=== PATIENT | female | born 1945 | race American Indian/Alaskan Native ===

== ENCOUNTER 2018-10-24 15:00 | Emergency (ER) | payer MEDICARE ==
[2018-10-24] MEDS ORDERED: Sodium Chloride 0.9% 10 ML Syringe FLUSH PRN (15:11)
[2018-10-24] MEDS ORDERED: Sodium Chloride 0.9% 500 ML IV ONE (15:42)
--- NOTE | 2018-10-24 15:45 | EDM.PDOC ---
ED HPI GENERAL MEDICAL PROBLEM - General Chief Complaint: Neuro Symptoms/Deficits Stated Complaint: DIZZYSPELLS Time Seen by Provider: 10/24/18 15:41 Source of Information: Reports: Patient History Limitations: Reports: No Limitations - History of Present Illness INITIAL COMMENTS - FREE TEXT/NARRATIVE: Patient complains of dizziness (spinning sensation) and feeling off balance since yesterday @11 pm, symptoms noted to be worse upon awakening at 6 am today. She took four Dramamine tablets today without improvement. Had mild similar symptoms 2 weeks ago that spontaneously resolved, she did not seek medical attention. Also had similar symptoms 4 years ago, diagnosed with TIA and underwent left carotid endarterectomy. 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 - Related Data Allergies Allergy/AdvReac Type Severity Reaction Status Date / Time hydrocodone Allergy Nausea and Verified 10/24/18 15:36 Vomiting naproxen Allergy Hives Verified 10/24/18 15:36 niacin AdvReac Itching Verified 10/24/18 15:36 Home Meds: Home Meds Butalb/Acetaminophen/Caffeine [Fioricet 50-325-40 mg Tablet] 1 tab PO Q6H PRN [History] Losartan [Cozaar] 100 mg PO DAILY 90 Days tablet 05/19/13 [Rx] Metoprolol Tartrate [Lopressor] 100 mg PO BID 05/19/13 [History] Potassium Chloride [Klor-Con M20] 20 meq PO BIDM #60 tab.er 05/19/13 [Rx] Simvastatin [Zocor] 40 mg PO DAILY 05/19/13 [History] Calcium Carbonate/Vitamin D3 [Caltrate 600+D 1500 MG-400 Units] 1 tab PO DAILY 04/13/14 [History] Ondansetron [Zofran] 4 mg PO Q8H PRN 04/13/14 [History] Vitamin A 8,000 unit PO DAILY 04/13/14 [History] rOPINIRole [Requip] 0.5 tab PO TID 04/13/14 [History] Albuterol Sulfate [Albuterol Sulfate HFA] 7 gm IH Q4H PRN 04/09/15 [History] Aspirin [Adult Low Dose Aspirin EC] 81 mg PO DAILY 04/09/15 [History] Doxycycline [Doxycycline Hyclate] 100 mg PO BID 10/24/18 [History] Past Medical History HEENT History: Reports: Cataract Cardiovascular History: Reports: High Cholesterol, Hypertension. Denies: CAD Respiratory History: Reports: COPD, Interstitial Lung Disease Musculoskeletal History: Reports: Osteoporosis Other Musculoskeletal History: Right hip severe osteoarthritis Neurological History: Reports: TIA - Past Surgical History HEENT Surgical History: Reports: Cataract Surgery, LASIK Cardiovascular Surgical History: Reports: Carotid Endarterectomy (Left) Musculoskeletal Surgical History: Reports: Arthroscopic Procedure Social & Family History - Tobacco Use Smoking Status *Q: Current Every Day Smoker Tobacco Use Within Last Twelve Months: Cigarettes - Alcohol Use Alcohol Use History: No ED ROS GENERAL - Review of Systems Review Of Systems: ROS reveals no pertinent complaints other than HPI. ED EXAM, DIZZINESS - Physical Exam Exam: See Below Exam Limited By: No Limitations General Appearance: Alert, WD/WN, No Apparent Distress Eye Exam: Bilateral Eye: EOMI (No nystagmus), PERRL Ears: Normal External Exam, Normal Canal, Normal TMs Nose: Normal Inspection Throat/Mouth: No Airway Compromise Head Exam: Atraumatic, Normocephalic Neck: Normal Inspection, Supple, Full Range of Motion Respiratory/Chest: No Respiratory Distress, Lungs Clear, Normal Breath Sounds Cardiovascular: Regular Rate, Rhythm, No Murmur GI/Abdominal: No Distention Neurological: Alert, Normal Mood/Affect, CN II-XII Intact, Normal Plantar Flexion, No Motor/Sensory Deficits, Oriented x 3, Other (NIHSS score = 0) Extremities: Normal Inspection Psychiatric: Normal Affect, Normal Mood Skin Exam: Warm, Dry, Intact EKG INTERPRETATION EKG Date: 10/24/18 Time: 15:21 Rhythm: Other (sinus bradycardia) Rate (Beats/Min): 53 QRS: Other (LVH with secondary repolarization abnormality) Course - Vital Signs Last Recorded V/S: Last Vital Signs Temp 36.1 C 10/24/18 15:00 Pulse 54 L 10/24/18 15:00 Resp 20 10/24/18 15:00 BP 161/79 H 10/24/18 15:00 Pulse Ox 98 10/24/18 15:00 - Orders/Labs/Meds Orders: Active Orders 24 hr Category Date Time Status EKG Documentation Completion [RC] ASDIRECTED Care 10/24/18 15:10 Active CXR [Chest 2V] [CR] Stat Exams 10/24/18 15:14 Taken Head wo Cont [CT] Stat Exams 10/24/18 15:14 Taken UA W/MICROSCOPIC [URIN] Stat Lab 10/24/18 15:11 Ordered Sodium Chloride 0.9% [Normal Saline] 500 ml Med 10/24/18 15:42 Active IV .BOLUS Sodium Chloride 0.9% [Saline Flush] Med 10/24/18 15:11 Active 10 ml FLUSH ASDIRECTED PRN Saline Lock Insert [OM.PC] Routine Oth 10/24/18 15:11 Ordered EKG 12 Lead [EK] Stat Ther 10/24/18 15:10 Ordered Medication Orders Sodium Chloride (Normal Saline) 500 mls @ 500 mls/hr IV .BOLUS ONE Stop: 10/24/18 16:41 Last Admin: 10/24/18 16:05 Dose: 500 mls/hr Sodium Chloride (Saline Flush) 10 ml FLUSH ASDIRECTED PRN PRN Reason: Keep Vein Open Last Admin: 10/24/18 15:45 Dose: 10 ml Labs: Laboratory Tests 10/24/18 10/24/18 10/24/18 Range/Units 15:15 15:15 15:15 WBC 7.7 (4.5-12.0) X10-3/uL RBC 4.78 (3.23-5.20) x10(6)uL Hgb 13.4 (11.5-15.5) g/dL Hct 40.0 (30.0-51.3) % MCV 83.7 (80-96) fL MCH 28.1 (27.7-33.6) pg MCHC 33.6 (32.2-35.4) g/dL RDW 13.0 (11.5-15.5) % Plt Count 261 (125-369) X10(3)uL MPV 9.3 (7.4-10.4) fL Neut % (Auto) 70.5 (46-82) % Lymph % (Auto) 22.0 (13-37) % [place] % (Auto) 5.0 (4-12) % Eos % (Auto) 2 (1.0-5.0) % Baso % (Auto) 1 (0-2) % Neut # (Auto) 5.4 (1.6-8.3) # Lymph # (Auto) 1.7 (0.6-5.0) # [place] # (Auto) 0.4 (0.0-1.3) # Eos # (Auto) 0.1 (0.0-0.8) # Baso # (Auto) 0.1 (0.0-0.2) # PT (8.7-11.1) INR (0.89-1.13) APTT (24.4-33.2) SECONDS Sodium 137 (135-145) mmol/L Potassium 3.3 L (3.5-5.3) mmol/L Chloride 102 (100-110) mmol/L Carbon Dioxide 29 (21-32) mmol/L BUN 12 (7-18) mg/dL Creatinine 0.7 (0.55-1.02) mg/dL Est Cr Clr Drug Dosing TNP Estimated GFR (MDRD) > 60 (>60) BUN/Creatinine Ratio 17.1 (9-20) Glucose 91 (80-116) mg/dL Calcium 9.2 (8.6-10.2) mg/dL Magnesium (1.8-2.5) mg/dL Total Bilirubin 0.4 (0.1-1.3) mg/dL AST 15 (5-25) IU/L ALT < 6 L (12-36) U/L Alkaline Phosphatase 73 (56-112) IU/L Troponin I < 0.017 L (<0.017-0.056) ng/mL Total Protein 8.4 H (6.0-8.0) g/dL Albumin 3.1 L (3.2-4.6) g/dL Globulin 5.3 g/dL Albumin/Globulin Ratio 0.6 10/24/18 10/24/18 Range/Units 15:15 15:15 WBC (4.5-12.0) X10-3/uL RBC (3.23-5.20) x10(6)uL Hgb (11.5-15.5) g/dL Hct (30.0-51.3) % MCV (80-96) fL MCH (27.7-33.6) pg MCHC (32.2-35.4) g/dL RDW (11.5-15.5) % Plt Count (125-369) X10(3)uL MPV (7.4-10.4) fL Neut % (Auto) (46-82) % Lymph % (Auto) (13-37) % [place] % (Auto) (4-12) % Eos % (Auto) (1.0-5.0) % Baso % (Auto) (0-2) % Neut # (Auto) (1.6-8.3) # Lymph # (Auto) (0.6-5.0) # [place] # (Auto) (0.0-1.3) # Eos # (Auto) (0.0-0.8) # Baso # (Auto) (0.0-0.2) # PT 9.8 (8.7-11.1) INR 1.01 (0.89-1.13) APTT 28.4 (24.4-33.2) SECONDS Sodium (135-145) mmol/L Potassium (3.5-5.3) mmol/L Chloride (100-110) mmol/L Carbon Dioxide (21-32) mmol/L BUN (7-18) mg/dL Creatinine (0.55-1.02) mg/dL Est Cr Clr Drug Dosing Estimated GFR (MDRD) (>60) BUN/Creatinine Ratio (9-20) Glucose (80-116) mg/dL Calcium (8.6-10.2) mg/dL Magnesium 1.9 (1.8-2.5) mg/dL Total Bilirubin (0.1-1.3) mg/dL AST (5-25) IU/L ALT (12-36) U/L Alkaline Phosphatase (56-112) IU/L Troponin I (<0.017-0.056) ng/mL Total Protein (6.0-8.0) g/dL Albumin (3.2-4.6) g/dL Globulin g/dL Albumin/Globulin Ratio Meds: Medications Generic Name Dose Route Start Last Admin Trade Name Freq PRN Reason Stop Dose Admin Sodium Chloride 500 mls @ 500 mls/hr 10/24/18 15:42 10/24/18 16:05 Normal Saline IV 10/24/18 16:41 500 mls/hr .BOLUS ONE Administration Sodium Chloride 10 ml 10/24/18 15:11 10/24/18 15:45 Saline Flush FLUSH 10 ml ASDIRECTED PRN Administration Keep Vein Open Discontinued Medications Generic Name Dose Route Start Last Admin Trade Name Freq PRN Reason Stop Dose Admin Aspirin 243 mg 10/24/18 16:23 10/24/18 16:24 Aspirin PO 10/24/18 16:24 243 mg ONETIME ONE Administration - Radiology Interpretation Free Text/Narrative:: Head CT: No acute findings. CXR: 10 mm nodular density right upper lung zone; interstitial opacities, likely related to fibrosis - Re-Assessments/Exams Free Text/Narrative Re-Assessment/Exam: 10/24/18 16:[address] Espinosa (neurology), recommends transfer to [facility] ED for MRI brain. Dr. Lindquist ([facility] ED) accepting. Departure - Departure Time of Disposition: 16:36 Disposition: DC/Tfer to Acute Hospital 02 Condition: Fair Clinical Impression: Dizziness, Suspected cerebrovascular accident (CVA) - Discharge Information *PRESCRIPTION DRUG MONITORING PROGRAM REVIEWED*: No *COPY OF PRESCRIPTION DRUG MONITORING REPORT IN PATIENT KYRA: Not Applicable Referrals: Yassine Mayen MD [Primary Care Provider] - Forms: ED Department Discharge - My Orders Last 24 Hours: My Active Orders 10/24/18 15:10 EKG Documentation Completion [RC] ASDIRECTED EKG 12 Lead [EK] Stat 10/24/18 15:11 UA W/MICROSCOPIC [URIN] Stat Sodium Chloride 0.9% [Saline Flush] 10 ml FLUSH ASDIRECTED PRN Saline Lock Insert [OM.PC] Routine 10/24/18 15:14 CXR [Chest 2V] [CR] Stat Head wo Cont [CT] Stat 10/24/18 15:42 Sodium Chloride 0.9% [Normal Saline] 500 ml IV .BOLUS - Assessment/Plan Last 24 Hours: My Active Orders 10/24/18 15:10 EKG Documentation Completion [RC] ASDIRECTED EKG 12 Lead [EK] Stat 10/24/18 15:11 UA W/MICROSCOPIC [URIN] Stat Sodium Chloride 0.9% [Saline Flush] 10 ml FLUSH ASDIRECTED PRN Saline Lock Insert [OM.PC] Routine 10/24/18 15:14 CXR [Chest 2V] [CR] Stat Head wo Cont [CT] Stat 10/24/18 15:42 Sodium Chloride 0.9% [Normal Saline] 500 ml IV .BOLUS
[2018-10-24] MEDS ORDERED: Aspirin 81 MG Tab.Chew PO ONE (16:23)
[2018-10-24 17:07] VITALS: BP 150/69
== END 2018-10-24 16:54 ==
LOC: FB.ED 15:00
DX: R42 Dizziness and giddiness (principal); I10 Essential (primary) hypertension; F17.210 Nicotine dependence, cigarettes, uncomplicated; Z88.8 Allergy status to other drugs, medicaments and biological substances; Z88.5 Allergy status to narcotic agent; Z79.899 Other long term (current) drug therapy
CPT/HCPCS: 36415; 70450; 71046; 80053; 81001; 83735; 84484; 85025; 85610; 85730; 93005; 96360; 99285; A9270-GY; J7040

== ENCOUNTER 2020-08-13 16:20 | Emergency (ER) | payer MEDICARE ==
--- NOTE | 2020-08-13 16:23 | EDM.PDOC ---
ED HPI GENERAL MEDICAL PROBLEM - General Chief Complaint: Abdominal Pain Stated Complaint: ABD PAIN Time Seen by Provider: 08/13/20 16:50 Source of Information: Reports: Patient, Family History Limitations: Reports: No Limitations - History of Present Illness INITIAL COMMENTS - FREE TEXT/NARRATIVE: pt is sent in from the clinic for evaluation of lower abd pain that has been pre sent since thursday , states pain is all over the lower abd and the lower back no fever or chills no diarrhea , no constipation Onset: Gradual Onset Date: 08/08/20 Duration: Day(s): (3) Location: Reports: Abdomen Quality: Reports: Ache Severity: Moderate Improves with: Reports: Rest Worsens with: Reports: Movement Context: Reports: Activity Associated Symptoms: Reports: Weakness, Other (low back pain ) abdominal Pain Score (Numeric/FACES): 8 - Related Data Allergies Allergy/AdvReac Type Severity Reaction Status Date / Time hydrocodone Allergy Nausea and Verified 10/24/18 15:36 Vomiting naproxen Allergy Hives Verified 10/24/18 15:36 niacin AdvReac Itching Verified 10/24/18 15:36 Home Meds: Home Meds Butalb/Acetaminophen/Caffeine [Fioricet 50-325-40 mg Tablet] 1 tab PO Q6H PRN 05/19/13 [History] Losartan [Cozaar] 100 mg PO DAILY 90 Days tablet 05/19/13 [Rx] Metoprolol Tartrate [Lopressor] 100 mg PO BID 05/19/13 [History] Potassium Chloride [Klor-Con M20] 20 meq PO BIDM #60 tab.er 05/19/13 [Rx] Simvastatin [Zocor] 40 mg PO DAILY 05/19/13 [History] Calcium Carbonate/Vitamin D3 [Caltrate 600+D 1500 MG-400 Units] 1 tab PO DAILY 04/13/14 [History] Ondansetron [Zofran] 4 mg PO Q8H PRN 04/13/14 [History] Vitamin A 8,000 unit PO DAILY 04/13/14 [History] rOPINIRole [Requip] 0.5 tab PO TID 04/13/14 [History] Albuterol Sulfate [Albuterol Sulfate HFA] 7 gm IH Q4H PRN 04/09/15 [History] Aspirin [Adult Low Dose Aspirin EC] 81 mg PO DAILY 04/09/15 [History] Doxycycline [Doxycycline Hyclate] 100 mg PO BID 10/24/18 [History] Ciprofloxacin [Cipro] 250 mg PO BID #20 ml 08/13/20 [Rx] Ondansetron [Zofran ODT] 4 mg PO Q6H PRN #30 tab.dis 08/13/20 [Rx] metroNIDAZOLE [Metronidazole] 250 mg PO BID #20 tablet 08/13/20 [Rx] traMADol [Ultram] 50 mg PO Q6H PRN #6 tab 08/13/20 [Rx] Past Medical History HEENT History: Reports: Cataract Cardiovascular History: Reports: High Cholesterol, Hypertension. Denies: CAD Respiratory History: Reports: COPD, Interstitial Lung Disease Musculoskeletal History: Reports: Osteoporosis Other Musculoskeletal History: Right hip severe osteoarthritis Neurological History: Reports: TIA Other Neuro History: DDD - Past Surgical History HEENT Surgical History: Reports: Cataract Surgery, LASIK Cardiovascular Surgical History: Reports: Carotid Endarterectomy (Left) Musculoskeletal Surgical History: Reports: Arthroscopic Procedure Social & Family History - Family History Family Medical History: No Pertinent Family History - Caffeine Use Caffeine Use: Reports: Coffee ED ROS GENERAL - Review of Systems Review Of Systems: See Below Constitutional: Reports: Weakness, Fatigue. Denies: Fever, Chills, Malaise HEENT: Reports: No Symptoms Respiratory: Reports: No Symptoms Cardiovascular: Reports: No Symptoms Endocrine: Reports: Fatigue GI/Abdominal: Reports: Abdominal Pain, Anorexia, Decreased Appetite, Nausea. Denies: Constipation, Diarrhea, Vomiting : Reports: No Symptoms Musculoskeletal: Reports: Back Pain Skin: Reports: No Symptoms Neurological: Reports: No Symptoms Psychiatric: Reports: No Symptoms Hematologic/Lymphatic: Reports: No Symptoms Immunologic: Reports: No Symptoms ED EXAM, GI/ABD - Physical Exam Exam: See Below Exam Limited By: No Limitations General Appearance: Alert, WD/WN, No Apparent Distress Eyes: Bilateral: EOMI Ears: Normal External Exam Nose: Normal Inspection Throat/Mouth: Normal Oropharynx Head: Atraumatic, Normocephalic Neck: Supple, Non-Tender Respiratory/Chest: No Respiratory Distress, Lungs Clear Cardiovascular: Normal Peripheral Pulses, Regular Rate, Rhythm GI/Abdominal Exam: Soft, Tender (LLQ amd suprapubic area), Abnormal Bowel Sounds (hypoactive) Back Exam: No: CVA Tenderness (R), CVA Tenderness (L), Muscle Spasm, Paraspinal Tenderness Extremities: Normal Inspection, Normal Range of Motion Neurological: Alert, Oriented, CN II-XII Intact Psychiatric: Normal Affect, Normal Mood Skin Exam: Warm, Dry, Intact Course - Vital Signs Last Recorded V/S: Last Vital Signs Temp 36.6 C 08/13/20 16:40 Pulse 60 08/13/20 16:40 Resp 16 08/13/20 16:40 BP 136/63 08/13/20 16:40 Pulse Ox 95 08/13/20 16:40 - Orders/Labs/Meds Orders: Active Orders 24 hr Category Date Time Status Sodium Chloride 0.9% [Normal Saline] 1,000 ml Med 08/13/20 17:00 Active IV ASDIRECTED Medication Orders Sodium Chloride (Normal Saline) 1,000 mls @ 999 mls/hr IV ASDIRECTED ANDREW Last Admin: 08/13/20 17:29 Dose: 999 mls/hr Documented by: [email or web address] Labs: Laboratory Tests 08/13/20 08/13/20 Range/Units 17:07 17:07 Sodium 131 L (135-145) mmol/L Potassium 3.8 (3.5-5.3) mmol/L Chloride 95 L D (100-110) mmol/L Carbon Dioxide 26 (21-32) mmol/L BUN 10 (7-18) mg/dL Creatinine 0.7 (0.55-1.02) mg/dL Est Cr Clr Drug Dosing 58.33 mL/min Estimated GFR (MDRD) > 60 (>60) BUN/Creatinine Ratio 14.3 (9-20) Glucose 100 (80-116) mg/dL Calcium 8.2 L (8.6-10.2) mg/dL Total Bilirubin 0.5 (0.1-1.3) mg/dL AST 17 D (5-25) IU/L ALT 10 L D (12-36) U/L Alkaline Phosphatase 59 (56-112) IU/L C-Reactive Protein 7.4 H* (0.5-0.9) mg/dL Total Protein 8.1 H (6.0-8.0) g/dL Albumin 2.8 L (3.2-4.6) g/dL Globulin 5.3 g/dL Albumin/Globulin Ratio 0.5 Meds: Medications Generic Name Dose Route Start Last Admin Trade Name Dany PRN Reason Stop Dose Admin Sodium Chloride 1,000 mls @ 999 mls/hr 08/13/20 17:00 08/13/20 17:29 Normal Saline IV 999 mls/hr ASDIRECTED ANDREW Administration Discontinued Medications Generic Name Dose Route Start Last Admin Trade Name Dany PRN Reason Stop Dose Admin Diatrizoate Meglum/Diatrizoate Sod 30 ml 08/13/20 17:26 08/13/20 19:02 Gastrografin 37% PO 08/13/20 17:27 30 ml . DIRECTED ONE Administration Ciprofloxacin/Dextrose 400 mg/ 200 mls @ 200 mls/hr 08/13/20 19:27 08/13/20 20:22 Premix IV 08/13/20 20:26 200 mls/hr ONETIME ONE Administration Iopamidol 100 ml 08/13/20 17:05 08/13/20 19:02 Isovue-370 (76%) IV 08/13/20 17:06 70 ml . DIRECTED ONE Administration Metoclopramide HCl 10 mg 08/13/20 21:42 08/13/20 21:46 Reglan IM 08/13/20 21:43 10 mg ONETIME ONE Administration Metronidazole 500 mg 08/13/20 19:24 08/13/20 20:22 Flagyl PO 08/13/20 19:25 500 mg ONETIME ONE Administration Morphine Sulfate 2 mg 08/13/20 17:09 08/13/20 17:29 Morphine IVPUSH 08/13/20 17:10 2 mg ONETIME ONE Administration Morphine Sulfate 2 mg 08/13/20 19:13 08/13/20 19:19 Morphine IVPUSH 08/13/20 19:14 2 mg ONETIME ONE Administration Ondansetron HCl 4 mg 08/13/20 17:12 08/13/20 17:29 Zofran IVPUSH 08/13/20 17:13 4 mg ONETIME ONE Administration - Re-Assessments/Exams Free Text/Narrative Re-Assessment/Exam: 08/13/20 19:28 Pt had IVF , Morphine Decision made to have CT abd done Pt was on IVF and morphine, given zofran at the time Other labs done: elevated CRP noted 08/13/20 19:[address] report with radiologist : incidental finding of AAa 4.6mm , will need monitoring by US , if possible this week As she had diarrhea , may have element of colitis , which may explain abd pain will treat with flagyl and ciprofloxacin Departure - Departure Time of Disposition: 22:00 Disposition: Home, Self-Care 01 Condition: Fair Clinical Impression: Abdominal pain, Colitis, AAA (abdominal aortic aneurysm) - Discharge Information *PRESCRIPTION DRUG MONITORING PROGRAM REVIEWED*: Not Applicable *COPY OF PRESCRIPTION DRUG MONITORING REPORT IN PATIENT KYRA: Not Applicable Prescriptions: Ciprofloxacin [Cipro] 250 mg PO BID #20 ml metroNIDAZOLE [Metronidazole] 250 mg PO BID #20 tablet traMADol [Ultram] 50 mg PO Q6H PRN #6 tab PRN Reason: Pain (Moderate 4-6) Ondansetron [Zofran ODT] 4 mg PO Q6H PRN #30 tab.dis PRN Reason: Nausea Instructions: Abdominal Aortic Aneurysm Referrals: Lara Amezcua PA-C [Primary Care Provider] - Forms: ED Department Discharge Additional Instructions: Make appointment to get ultrasound of the abdomen to check on Aneurysm Make appointment with your PCP for further evaluation Call with any concerns Sepsis Event Note (ED) - Focused Exam Vital Signs: Vital Signs Temp Pulse Resp BP Pulse Ox 08/13/20 16:40 36.6 C 60 16 136/63 95 - My Orders Last 24 Hours: My Active Orders 08/13/20 17:00 Sodium Chloride 0.9% [Normal Saline] 1,000 ml IV ASDIRECTED - Assessment/Plan Last 24 Hours: My Active Orders 08/13/20 17:00 Sodium Chloride 0.9% [Normal Saline] 1,000 ml IV ASDIRECTED
[2020-08-13] MEDS ORDERED: Sodium Chloride 0.9% 1,000 ML IV SCH (17:00)
[2020-08-13] MEDS ORDERED: Iopamidol 755 Mg/ML 100 ML Bottle IV ONE (17:05)
[2020-08-13] MEDS ORDERED: Morphine 2 MG/ML SYRINGE IVPUSH ONE ×2 (17:09→19:13)
[2020-08-13] MEDS ORDERED: Ondansetron 4 MG/2 ML SDV IVPUSH ONE (17:12)
[2020-08-13] MEDS ORDERED: Diatrizoate Meglumine/Diatrizoate Sodium 37% 30 ML Bottle PO ONE (17:26)
[2020-08-13] MEDS ORDERED: metroNIDAZOLE 500 MG Tab PO ONE (19:24)
[2020-08-13] MEDS ORDERED: Ciprofloxacin in D5W 400 MG in Premix Bag 1 BAG IV ONE ×2 (19:27)
[2020-08-13] MEDS ORDERED: Metoclopramide 10 MG/2 ML SDV IM ONE (21:42)
--- NOTE | 2020-08-13 21:53 | CT ---
CT ABDOMEN AND PELVIS WITH CONTRAST INDICATION: Lower abdominal pain. Spiral 3.75 mm axial sections were obtained through the abdomen and pelvis with oral and IV contrast (70 mL Isovue 370 at 1.8 mL per second) with sagittal and coronal reconstructions 08/13/2020--no comparisons. Total exam DLP was 365.45 mGy-cm. The heart appears enlarged. No pericardial effusion was seen. There is some ground glass infiltrate suggested in the lung bases bilaterally posteriorly in the lower lobes with suggestion of bronchiectasis. Findings are most severe at the left lower lobe. Could be some minimal patchy pneumonia in that area especially. No gallstones were demonstrated. The liver appeared normal. The common bile duct did not appear enlarged for age. The pancreas appears to be somewhat fatty replaced in the tail area especially but otherwise unremarkable. The spleen had a normal appearance. The adrenal glands appeared normal. A probable simple cyst is noted in the lower middle pole of the right kidney measuring approximately 21 mm with no other renal masses or evidence of obstructive uropathy identified. There does appear to be some asymmetry in excretion from the kidneys, however, with the right kidney somewhat behind the left. This could be on the basis of atherosclerotic changes with calcifications noted in the proximal renal arteries, especially the right. Additionally there is an abdominal aortic aneurysm measuring a maximum of approximately 46 mm with narrowed lumen due to mural thrombus just below the level of the renal arteries. Fairly extensive arterial calcifications are noted throughout the aorta, iliac and femoral arteries with calcifications also noted in the superior mesenteric and splenic arteries. The appendix appeared normal visualized on coronal images 41 through 50 and axial images 64 through 71. No evidence of free air or bowel obstruction is noted. Diverticulosis is noted in the distal transverse colon and distal descending colon and more prominently in the sigmoid colon without definite evidence of diverticulitis. Gas and stool is noted in the rectum. The uterus is abdomen compatible with history of its removal. Urinary bladder appeared unremarkable. A moderate dextroconvex scoliosis of the lower middle lumbar spine is noted. Degenerative hypertrophic changes are noted in the L3 through L4-5 area with degenerative disc disease at L5-S1 and minimal hypertrophic changes also at L5- S1. IMPRESSION: 1. Abdominal aortic aneurysm measuring a maximum of approximately 46 mm just barely infrarenal in location. 2. Slight delay in excretion of the left kidney most likely due to atherosclerotic change--correlate clinically. 3. Small probable simple right renal cyst. 4. Generalized ASD with extensive arterial calcification. 5. Diverticulosis coli without definite evidence of diverticulitis. 6. Normal appearing appendix. 7. Post hysterectomy. 8. Scoliosis with degenerative changes and disc disease as noted above. Report was called to Dr. Simon at 1920 hours. [facility]
[2020-08-13 22:19] VITALS: BP 129/64; PULSE 72
== END 2020-08-13 22:00 | disposition home or self-care (01) ==
LOC: FB.ED 16:20
DX: K52.9 Noninfective gastroenteritis and colitis, unspecified (principal); I71.4 Abdominal aortic aneurysm, without rupture; E78.00 Pure hypercholesterolemia, unspecified; I10 Essential (primary) hypertension; J44.9 Chronic obstructive pulmonary disease, unspecified; Z86.73 Personal history of transient ischemic attack (TIA), and cerebral infarction without residual deficits; M16.11 Unilateral primary osteoarthritis, right hip; Z79.82 Long term (current) use of aspirin; Z79.899 Other long term (current) drug therapy; Z88.5 Allergy status to narcotic agent; Z88.8 Allergy status to other drugs, medicaments and biological substances
CPT/HCPCS: 36415; 74177; 80053; 86140; 96365; 96372; 96375; 96376; 99284; A9270; J0744; J2270; J2405; J2765; J7030; Q9963; Q9967; 99283